=== PATIENT | male | born 1955 | race Caucasian/White ===

== ENCOUNTER 2016-09-23 11:26 | Emergency (ER) | payer OTHER ==
[~2016-09-23] VITALS: Ht 172.7 cm; Wt 111.0 kg
[~2016-09-23 11:26] MED LIST: ACIPHEX20 MG PO; ADVAIR 250-501 EACH; ADVAIR 250-501 EACH IH; ADVAIR 250/501 DISK IH; ADVAIR HFA120 INHALA IH; ADVIL,NUPRIN,M200 MG PO; ALBUTEROL17 GM IH; ASPIRIN81 M2 PO; ATORVASTATIN CA10 MG PO; ATROVENT 00.5 MG/2.5 IH; Aspirin E.C. PO; BAYER CHEWABLE81 MG PO; CLONAZEPAM0.5 MG PO; CLOPIDOGREL75 MG PO; COMBIVENT INH14.7 GM PO; COMBIVENT RESPIM4 GM IH; CRESTOR5 MG PO; CYCLOBENZAPRINE10 MG PO; DOXAZOSIN MESYLA2 MG PO; DUONEB 2.5-0.5 M3 ML AEROSOL; ENDOCET 5-3251 EAC1 PO; ENDOCET 5-3251 EACH PO; FLEXERIL10 MG PO; FLOVENT 22120 INHALA IH; FLOVENT DISKUS1 DIS1 IH; HYDROCHLOROTHIA25 MG PO; IBUPROFEN200 M2 PO; IMDUR30 MG PO; LEVOFLOXACIN750 MG PO; LEXAPRO10 MG PO; LISINOPRIL-HCT1 EAC3 PO; LISINOPRIL2.5 MG PO; LOPRESSOR50 MG PO; Lopressor PO; MAG-OXIDE400 MG PO; METOPROLOL SUCC50 MG PO; NICOTINE PATCH1 EAC2 TD; NOHOMEMEDS; NORVASC5 MG PO; OMEPRAZOLE20 MG PO; OMEPRAZOLE40 M1 PO; OXYCODONE-APAP1 EAC6 PO; PERCOCET 5/31 TABLET PO; PREDNISONE10 MG PO; PREDNISONE50 MG PO; PRILOSEC20 MG PO; PROAIR HFA8.5 GM IH; PROVENTIL HFA6.7 GM PO; PROVENTIL2.5 MG/3 M IH; PROZAC20 MG PO; RANITIDINE HCL300 MG PO; SERTRALINE HCL100 MG PO; SPIRIVA RESPIMAT4 GM IH; SYMBICORT60 INHALAT IH; THEO-DUR,THEOC200 MG PO; THEO-DUR,THEOC300 MG PO; TOPROL XL50 MG PO; WELLBUTRIN SR100 MG PO; WELLBUTRIN XL300 MG PO; Wellbutrin SR PO; XARELTO15 MG PO; ZANTAC300 MG PO; ZESTORETIC 20-1 EAC2 PO; ZITHROMAX500 MG PO; Zocor PO
[2016-09-23 12:24] LABS: HEMATOCRIT 57.9 % (38.0-50.0); MCH 31.5 PG (29.0-34.0); MCHC 34.2 G/DL (30.0-36.0); MEAN PLAT.VOLUME 9.4 uM^3 (9.0-12.4); PLATELET COUNT 240 K/uL (156-360); RBC DIS.WIDTH-CV 12.9 % (11.8-14.6); RBC DIS.WIDTH-SD 43.3 % (39-53); RED BLOOD COUNT 6.28 M/uL (4.00-5.50); WHITE BLOOD COUNT 6.5 K/uL (4.1-10.2)
[2016-09-23 12:34] LABS: MCV 92.2 FL (86-99)
[2016-09-23 12:39] LABS: CHLORIDE 100 mEq/L (99-109); POTASSIUM 4.6 mEq/L (3.7-5.4); SODIUM 139 mEq/L (136-147)
[2016-09-23 12:40] LABS: GLUCOSE 115 mg/dL (70-99)
[2016-09-23 12:42] LABS: ANION GAP 8 MEQ/L (2-14)
[2016-09-23 12:44] LABS: GFR ESTIMATE (CALCULATED) 51 mL/min/
[2016-09-23 12:45] LABS: UREA NITROGEN (BUN) 21 mg/dL (9-23)
[2016-09-23 12:49] LABS: TROP-I INTERPRETATION NEGATIVE; TROPONIN-I 0.01 ng/mL (0.0-0.30)
[2016-09-23 13:00] VITALS: BP 132/70
== END 2016-09-23 13:01 | disposition home or self-care (01) ==
LOC: EME 11:26
PROVIDERS: Emergency Medicine
DX: R07.89 Other chest pain (principal); I10 Essential (primary) hypertension; J44.9 Chronic obstructive pulmonary disease, unspecified; J45.909 Unspecified asthma, uncomplicated; E78.5 Hyperlipidemia, unspecified; I25.2 Old myocardial infarction; K21.9 Gastro-esophageal reflux disease without esophagitis; G43.909 Migraine, unspecified, not intractable, without status migrainosus; Z96.89 Presence of other specified functional implants; F32.9 Major depressive disorder, single episode, unspecified; F17.200 Nicotine dependence, unspecified, uncomplicated
CPT/HCPCS: 80048; 84484; 85027; 93005; 99281; 99284

== ENCOUNTER 2016-12-08 01:37 | Emergency (ER) | payer OTHER ==
[~2016-12-08] VITALS: Ht 188 cm; Wt 117.2 kg
[2016-12-08] MEDS ORDERED: NAPROSYN500 MG PO (02:26)
[2016-12-08 02:46] VITALS: BP 168/99
== END 2016-12-08 02:48 | disposition home or self-care (01) ==
LOC: EME 01:37
DX: S80.02XA Contusion of left knee, initial encounter (principal); W10.9XXA Fall (on) (from) unspecified stairs and steps, initial encounter; J44.9 Chronic obstructive pulmonary disease, unspecified; F17.200 Nicotine dependence, unspecified, uncomplicated; I10 Essential (primary) hypertension; G89.29 Other chronic pain; Z79.891 Long term (current) use of opiate analgesic
CPT/HCPCS: 73564; 99281; 99283

== ENCOUNTER 2017-05-08 10:32 | Observation (INO) | payer OTHER ==
[~2017-05-08] VITALS: Ht 188 cm; Wt 109.1 kg
[~2017-05-08 10:32] MED LIST changes: +NAPROSYN500 MG PO
[2017-05-08 11:17] LABS: HEMATOCRIT 51.6 % (38.0-50.0); HEMOGLOBIN 18.7 G/DL (12.5-16.6); MCH 32.9 PG (29.0-34.0); MCHC 36.2 G/DL (30.0-36.0); MCV 90.8 FL (86-99); PLATELET COUNT 211 K/uL (156-360); RBC DIS.WIDTH-CV 12.7 % (11.8-14.6); RBC DIS.WIDTH-SD 41.8 % (39-53); RED BLOOD COUNT 5.68 M/uL (4.00-5.50); WHITE BLOOD COUNT 5.9 K/uL (4.1-10.2)
[2017-05-08 11:29] LABS: CHLORIDE 99 mEq/L (99-109); POTASSIUM 3.8 mEq/L (3.7-5.4); SODIUM 140 mEq/L (136-147)
[2017-05-08 11:31] LABS: GLUCOSE 102 mg/dL (70-99)
[2017-05-08 11:34] LABS: SERUM ETHYL ALCOHOL < 10 mg/dL
[2017-05-08 11:35] LABS: CREATININE 1.3 mg/dL (0.6-1.3); GFR ESTIMATE (CALCULATED) > 59 mL/min/ (58.99-99999)
[2017-05-08 11:36] LABS: UREA NITROGEN (BUN) 21 mg/dL (9-23)
[2017-05-08 11:38] LABS: CREATINE KINASE 53 IU/L (1-294); LIPASE 25 U/L (1.0-51.0); TOTAL CK 53 IU/L (1-294); TROP-I INTERPRETATION NEGATIVE; TROPONIN-I < 0.01 ng/mL (0.0-0.30)
[2017-05-08 11:44] LABS: CK-MB 1.4 ng/mL (0.0-4.9); CKMB RELATIVE INDEX 2.6 (0.0-3.9)
[2017-05-08 13:46] LABS: AMPHETAMINE NEGATIVE (500 ng/mL); BARBITURATES NEGATIVE (200 ng/mL); BENZODIAZEPINES NEGATIVE (150 ng/mL); BUPRENORPHINE NEGATIVE (10 ng/mL); COCAINE NEGATIVE (150 ng/mL); METHADONE NEGATIVE (200 ng/mL); METHAMPHETAMINE NEGATIVE (500 ng/mL); OPIATES (MORPHINE) NEGATIVE (100 ng/mL); OXYCODONE NEGATIVE (100 ng/mL); PHENCYCLIDINE NEGATIVE (25 ng/mL); PROPOXYPHENE NEGATIVE (300 ng/mL); THC CANNABINOIDS PRESUMPTIVE POSITIVE (50 ng/mL); TRICYCLIC ANTIDEPRESSANTS NEGATIVE (300 ng/mL)
[2017-05-08 16:19] LABS: TROP-I INTERPRETATION NEGATIVE; TROPONIN-I 0.02 ng/mL (0.0-0.30)
[2017-05-08] MEDS ORDERED: HYDROCHLOROTHIA25 MG PO (16:48)
[2017-05-08 16:50] VITALS: BP 134/90
[2017-05-08] MEDS ORDERED: METOPROLOL SUC100 MG PO (16:50)
[2017-05-08] MEDS ORDERED: DULOXETINE HCL60 MG PO (16:57)
[2017-05-08] MEDS ORDERED: AMLODIPINE BESYL5 MG PO (17:00)
[2017-05-08] MEDS ORDERED: GABAPENTIN300 MG PO (17:06)
== END 2017-05-08 17:01 | disposition left against medical advice (07) ==
LOC: EME 10:32 → EDOF 14:22 → ENRESERV 14:27 → EDOF 17:01
PROVIDERS: Emergency Medicine; Physician Assistant
DX: R55 Syncope and collapse (principal); R51 Headache; J44.9 Chronic obstructive pulmonary disease, unspecified; Z99.81 Dependence on supplemental oxygen; R09.02 Hypoxemia; W10.9XXA Fall (on) (from) unspecified stairs and steps, initial encounter; I12.9 Hypertensive chronic kidney disease with stage 1 through stage 4 chronic kidney disease, or unspecified chronic kidney disease; N18.9 Chronic kidney disease, unspecified; R07.9 Chest pain, unspecified; I25.10 Atherosclerotic heart disease of native coronary artery without angina pectoris; R53.82 Chronic fatigue, unspecified; G47.00 Insomnia, unspecified; F32.9 Major depressive disorder, single episode, unspecified; E78.5 Hyperlipidemia, unspecified; F17.200 Nicotine dependence, unspecified, uncomplicated; F12.90 Cannabis use, unspecified, uncomplicated; R42 Dizziness and giddiness; R29.6 Repeated falls; T43.216A Underdosing of selective serotonin and norepinephrine reuptake inhibitors, initial encounter; Z91.128 Patient's intentional underdosing of medication regimen for other reason; Z80.9 Family history of malignant neoplasm, unspecified; Z91.040 Latex allergy status; Z88.6 Allergy status to analgesic agent
CPT/HCPCS: 70450; 71046; 80048; 81003; 82550 91; 82553; 83690; 84484; 84999; 85027; 93005; 93880; 95819; G0378; G0480; J7030

== ENCOUNTER 2017-05-20 20:59 | Inpatient (IN) | payer OTHER ==
[~2017-05-20] VITALS: Ht 188 cm; Wt 110.1 kg
[~2017-05-20 20:59] MED LIST changes: +AMLODIPINE BESYL5 MG PO; +DULOXETINE HCL60 MG PO; +GABAPENTIN300 MG PO; +METOPROLOL SUC100 MG PO; +THEOPHYLLINE400 MG PO
[2017-05-20 22:00] LABS: HEMATOCRIT 49.4 % (38.0-50.0); HEMOGLOBIN 17.7 G/DL (12.5-16.6); MCH 32.7 PG (29.0-34.0); MCHC 35.8 G/DL (30.0-36.0); MCV 91.1 FL (86-99); PLATELET COUNT 237 K/uL (156-360); RBC DIS.WIDTH-CV 12.9 % (11.8-14.6); RBC DIS.WIDTH-SD 42.3 % (39-53); RED BLOOD COUNT 5.42 M/uL (4.00-5.50); WHITE BLOOD COUNT 6.6 K/uL (4.1-10.2)
[2017-05-20 22:10] LABS: PTT 31.4 SEC (25-37)
[2017-05-20 22:12] LABS: CHLORIDE 101 mEq/L (99-109); POTASSIUM 3.9 mEq/L (3.7-5.4); SODIUM 139 mEq/L (136-147)
[2017-05-20 22:14] LABS: GLUCOSE 105 mg/dL (70-99)
[2017-05-20 22:18] LABS: CREATININE 1.4 mg/dL (0.6-1.3); GFR ESTIMATE (CALCULATED) 55 mL/min/ (58.99-99999)
[2017-05-20 22:19] LABS: UREA NITROGEN (BUN) 22 mg/dL (9-23)
[2017-05-20 22:27] LABS: TROP-I INTERPRETATION NEGATIVE; TROPONIN-I 0.01 ng/mL (0.0-0.30)
[2017-05-20] MEDS ORDERED: ATORVASTATIN CA10 MG PO (22:30)
[2017-05-20] MEDS ORDERED: VITAMIN D32000 UNI1 PO (22:30)
[2017-05-20 23:25] LABS: THEOPHYLLINE 8.9 MCG/ML (10-20)
[2017-05-21 00:20] VITALS: BP 136/72
[2017-05-21 00:44] LABS: HDL CHOLESTEROL 39 MG/DL (Desirable>=40); LDL CHOLESTEROL 138 mg/dL (Desirable<100); NON-HDL CHOLESTEROL 178 mg/dL (Desirable<160); TOTAL CHOLESTEROL 217 mg/dL (Desirable<200); TRIGLYCERIDES 201 MG/DL (Normal: <150)
[2017-05-21 03:59] VITALS: BP 127/77
[2017-05-21 07:17] LABS: HEMATOCRIT 50.1 % (38.0-50.0); HEMOGLOBIN 17.4 G/DL (12.5-16.6); MCH 31.8 PG (29.0-34.0); MCHC 34.7 G/DL (30.0-36.0); MCV 91.4 FL (86-99); PLATELET COUNT 228 K/uL (156-360); RBC DIS.WIDTH-CV 12.9 % (11.8-14.6); RBC DIS.WIDTH-SD 43.4 % (39-53); RED BLOOD COUNT 5.48 M/uL (4.00-5.50); WHITE BLOOD COUNT 6.5 K/uL (4.1-10.2)
[2017-05-21 07:39] LABS: ALBUMIN 4.1 G/DL (3.2-4.8); ALKALINE PHOSPHATASE 113 IU/L (3-129); ALT (GPT) 16 IU/L (3-49); AST (GOT) 14 IU/L (2-34); CHLORIDE 95 MEQ/L (99-109); CREATININE 1.5 MG/DL (0.6-1.3); GFR ESTIMATE (CALCULATED) 51 mL/min/ (58.99-99999); GLUCOSE 100 mg/dL (70-99); POTASSIUM 3.9 MEQ/L (3.7-5.4); SODIUM 137 MEQ/L (136-147); TOTAL PROTEIN 6.4 G/DL (6.4-8.3); UREA NITROGEN (BUN) 21 mg/dL (9-23)
[2017-05-21 07:41] VITALS: BP 120/80
[2017-05-21 11:40] VITALS: BP 132/82
[2017-05-21 16:05] VITALS: BP 122/80
[2017-05-21 19:38] VITALS: BP 120/80
[2017-05-22 00:06] VITALS: BP 119/71
[2017-05-22 04:07] VITALS: BP 118/78
[2017-05-22 06:32] LABS: BASOPHIL (%) 0.4 % (0-1); EOSINOPHIL (%) 1.4 % (0-5); EOSINOPHIL COUNT 0.1 K/uL (0-0.3); HEMATOCRIT 50.9 % (38.0-50.0); HEMOGLOBIN 17.7 G/DL (12.5-16.6); IMMATURE GRANULOCYTE (%) 0.4 % (0.0-0.7); LYMPHOCYTE (%) 24.9 % (15-42); LYMPHOCYTE COUNT 1.7 K/uL (1.0-2.8); MCH 31.7 PG (29.0-34.0); MCHC 34.8 G/DL (30.0-36.0); MCV 91.2 FL (86-99); MONOCYTE (%) 11.9 % (3-12); MONOCYTE COUNT 0.8 K/uL (0-0.8); NEUTROPHIL COUNT 4.3 K/uL (1.8-6.4); PLATELET COUNT 230 K/uL (156-360); RBC DIS.WIDTH-CV 12.8 % (11.8-14.6); RBC DIS.WIDTH-SD 42.5 % (39-53); RED BLOOD COUNT 5.58 M/uL (4.00-5.50)
[2017-05-22 07:07] LABS: CHLORIDE 96 MEQ/L (99-109); CREATININE 1.6 MG/DL (0.6-1.3); GFR ESTIMATE (CALCULATED) 47 mL/min/ (58.99-99999); GLUCOSE 108 mg/dL (70-99); POTASSIUM 4.4 MEQ/L (3.7-5.4); SODIUM 138 MEQ/L (136-147); UREA NITROGEN (BUN) 24 mg/dL (9-23)
[2017-05-22 07:35] VITALS: BP 110/70
[2017-05-22 09:51] LABS: HEMOGLOBIN A1c (GLYCOHEMOGLOB) 5.9 % (Below 5.7)
[2017-05-22 12:11] VITALS: BP 125/82
[2017-05-22] MEDS ORDERED: ATORVASTATIN CA80 MG PO (13:28)
[2017-05-22] MEDS ORDERED: ASPIRIN325 MG PO (13:28)
[2017-05-22 15:48] VITALS: BP 116/73
[2017-05-22 20:21] VITALS: BP 109/68
[2017-05-23 00:02] VITALS: BP 112/70
[2017-05-23 04:22] VITALS: BP 146/65
[2017-05-23 08:22] VITALS: BP 128/72
== END 2017-05-23 13:31 | disposition home health service (06) | DRG 64 ==
LOC: EME 20:59 → 5SOUTH 23:13 → EDOF 23:13 → ENRESERV 23:17 → EDOF 23:28 → ENRESERV 23:51 → 5SOUTH 05-21 00:20
PROVIDERS: Emergency Medicine; Internal Medicine; Physician Assistant
DX: I63.512 Cerebral infarction due to unspecified occlusion or stenosis of left middle cerebral artery (principal); G81.91 Hemiplegia, unspecified affecting right dominant side; R47.01 Aphasia; G93.6 Cerebral edema; R29.707 NIHSS score 7; J44.9 Chronic obstructive pulmonary disease, unspecified; Z99.81 Dependence on supplemental oxygen; I25.10 Atherosclerotic heart disease of native coronary artery without angina pectoris; I12.9 Hypertensive chronic kidney disease with stage 1 through stage 4 chronic kidney disease, or unspecified chronic kidney disease; N18.9 Chronic kidney disease, unspecified; R73.9 Hyperglycemia, unspecified; E78.00 Pure hypercholesterolemia, unspecified; F32.9 Major depressive disorder, single episode, unspecified; E66.9 Obesity, unspecified; Z68.31 Body mass index [BMI] 31.0-31.9, adult; D75.1 Secondary polycythemia; I45.10 Unspecified right bundle-branch block; K21.9 Gastro-esophageal reflux disease without esophagitis; I25.2 Old myocardial infarction; F17.200 Nicotine dependence, unspecified, uncomplicated; G43.909 Migraine, unspecified, not intractable, without status migrainosus; F41.9 Anxiety disorder, unspecified; F10.10 Alcohol abuse, uncomplicated; Z87.01 Personal history of pneumonia (recurrent); Z80.9 Family history of malignant neoplasm, unspecified
CPT/HCPCS: 70450; 70551; 71046; 80048; 80053; 80061; 80198; 83036; 84484; 85025; 85027; 85610; 85730; 92523 GN; 93005; 93306; 94640; 94640 76; 94799; 99202; 99281; 99285; C8923; J1644

== ENCOUNTER 2017-06-08 16:18 | Emergency (ER) | payer OTHER ==
[~2017-06-08] VITALS: Ht 188 cm; Wt 115.5 kg
[~2017-06-08 16:18] MED LIST changes: +ASPIRIN325 MG PO; +ATORVASTATIN CA80 MG PO; +VITAMIN D32000 UNI1 PO
[2017-06-08 17:34] LABS: BASOPHIL (%) 0.7 % (0-1); BASOPHIL COUNT 0.1 K/uL (0-0.1); EOSINOPHIL (%) 1.6 % (0-5); EOSINOPHIL COUNT 0.1 K/uL (0-0.3); HEMATOCRIT 46.7 % (38.0-50.0); HEMOGLOBIN 16.8 G/DL (12.5-16.6); IMMATURE GRANULOCYTE (%) 0.3 % (0.0-0.7); LYMPHOCYTE (%) 14.8 % (15-42); LYMPHOCYTE COUNT 1.1 K/uL (1.0-2.8); MCH 32.4 PG (29.0-34.0); MCV 90.2 FL (86-99); MONOCYTE (%) 8.7 % (3-12); MONOCYTE COUNT 0.7 K/uL (0-0.8); NEUTROPHIL (%) 73.9 % (45-76); NEUTROPHIL COUNT 5.5 K/uL (1.8-6.4); PLATELET COUNT 212 K/uL (156-360); RBC DIS.WIDTH-CV 12.5 % (11.8-14.6); RBC DIS.WIDTH-SD 41.5 % (39-53); RED BLOOD COUNT 5.18 M/uL (4.00-5.50); WHITE BLOOD COUNT 7.5 K/uL (4.1-10.2)
[2017-06-08 17:44] LABS: CHLORIDE 101 mEq/L (99-109); POTASSIUM 3.3 mEq/L (3.7-5.4); SODIUM 140 mEq/L (136-147)
[2017-06-08 17:46] LABS: GLUCOSE 153 mg/dL (70-99); INTER. NORMALIZED RATIO 1.1
[2017-06-08 17:48] LABS: PTT 31.4 SEC (25-37)
[2017-06-08 17:50] LABS: CREATININE 1.3 mg/dL (0.6-1.3); GFR ESTIMATE (CALCULATED) > 59 mL/min/ (58.99-99999)
[2017-06-08 17:51] LABS: UREA NITROGEN (BUN) 19 mg/dL (9-23)
[2017-06-08 17:55] LABS: TROP-I INTERPRETATION NEGATIVE; TROPONIN-I 0.01 ng/mL (0.0-0.30)
[2017-06-08 18:45] VITALS: BP 124/74
== END 2017-06-08 19:01 | disposition left against medical advice (07) ==
LOC: EME 16:18
PROVIDERS: Emergency Medicine
DX: G45.9 Transient cerebral ischemic attack, unspecified (principal); J44.9 Chronic obstructive pulmonary disease, unspecified; K21.9 Gastro-esophageal reflux disease without esophagitis; E78.5 Hyperlipidemia, unspecified; I12.9 Hypertensive chronic kidney disease with stage 1 through stage 4 chronic kidney disease, or unspecified chronic kidney disease; N18.9 Chronic kidney disease, unspecified; I25.2 Old myocardial infarction; F41.9 Anxiety disorder, unspecified; F32.9 Major depressive disorder, single episode, unspecified; Z86.73 Personal history of transient ischemic attack (TIA), and cerebral infarction without residual deficits; F17.200 Nicotine dependence, unspecified, uncomplicated; Z79.82 Long term (current) use of aspirin; Z88.6 Allergy status to analgesic agent; Z91.040 Latex allergy status
CPT/HCPCS: 70450; 71045; 80048; 84484; 85025; 85610; 85730; 93005; 99281; 99285

== ENCOUNTER 2017-08-26 23:00 | Observation (INO) | payer OTHER ==
[~2017-08-26] VITALS: Ht 188 cm; Wt 107.0 kg
[~2017-08-26 23:00] MED LIST changes: -METOPROLOL SUC100 MG PO
[2017-08-26 23:28] LABS: HEMATOCRIT 48.1 % (38.0-50.0); HEMOGLOBIN 17.2 G/DL (12.5-16.6); MCH 32.5 PG (29.0-34.0); MCHC 35.8 G/DL (30.0-36.0); MCV 90.9 FL (86-99); PLATELET COUNT 224 K/uL (156-360); RBC DIS.WIDTH-CV 12.4 % (11.8-14.6); RED BLOOD COUNT 5.29 M/uL (4.00-5.50); WHITE BLOOD COUNT 8.7 K/uL (4.1-10.2)
[2017-08-26 23:40] LABS: ALBUMIN 4.4 g/dL (3.2-4.8); CHLORIDE 98 mEq/L (99-109); POTASSIUM 3.7 mEq/L (3.7-5.4); SODIUM 138 mEq/L (136-147)
[2017-08-26 23:43] LABS: GLUCOSE 96 mg/dL (70-99); TOTAL PROTEIN 7.1 g/dL (6.4-8.3)
[2017-08-26 23:45] LABS: TOTAL BILIRUBIN 0.6 mg/dL (0.0-1.0)
[2017-08-26 23:46] LABS: ALKALINE PHOSPHATASE 139 IU/L (3-129); CREATININE 1.3 mg/dL (0.6-1.3); GFR ESTIMATE (CALCULATED) > 59 mL/min/ (58.99-99999)
[2017-08-26 23:47] LABS: UREA NITROGEN (BUN) 29 mg/dL (9-23)
[2017-08-26 23:48] LABS: AST (GOT) 14 IU/L (2-34)
[2017-08-26 23:49] LABS: ALT (GPT) 20 IU/L (3-49)
[2017-08-26 23:50] LABS: LIPASE 31 U/L (1.0-51.0); TROP-I INTERPRETATION NEGATIVE; TROPONIN-I 0.01 ng/mL (0.0-0.30)
[2017-08-27] MEDS ORDERED: LITE COAT ASPI325 M1 PO (00:28)
[2017-08-27] MEDS ORDERED: PERCOCET 7.51 TABLET PO (00:29)
[2017-08-27 01:46] LABS: D-DIMER ELISA < 150.00 ng/mLDDU (<230)
[2017-08-27 02:45] VITALS: BP 128/74
[2017-08-27 05:54] LABS: TROP-I INTERPRETATION NEGATIVE; TROPONIN-I < 0.01 ng/mL (0.0-0.30)
[2017-08-27 07:50] VITALS: BP 129/81
[2017-08-27 11:59] VITALS: BP 114/73
[2017-08-27 12:35] LABS: HEMATOCRIT 48.9 % (38.0-50.0); HEMOGLOBIN 16.5 G/DL (12.5-16.6); MCH 31.4 PG (29.0-34.0); MCHC 33.7 G/DL (30.0-36.0); MCV 93.1 FL (86-99); PLATELET COUNT 213 K/uL (156-360); RBC DIS.WIDTH-CV 12.5 % (11.8-14.6); RBC DIS.WIDTH-SD 43.1 % (39-53); RED BLOOD COUNT 5.25 M/uL (4.00-5.50); WHITE BLOOD COUNT 6.5 K/uL (4.1-10.2)
[2017-08-27 12:57] LABS: TROP-I INTERPRETATION NEGATIVE; TROPONIN-I < 0.01 ng/mL (0.0-0.30)
== END 2017-08-27 14:08 | disposition home or self-care (01) ==
LOC: EME 23:00 → EDOF 08-27 00:15 → ENRESERV 08-27 00:19 → 4SOUTH 08-27 02:34
PROVIDERS: Emergency Medicine; Hospitalist; Physician Assistant Medical
DX: R07.89 Other chest pain (principal); I69.351 Hemiplegia and hemiparesis following cerebral infarction affecting right dominant side; E78.5 Hyperlipidemia, unspecified; F17.200 Nicotine dependence, unspecified, uncomplicated; M19.90 Unspecified osteoarthritis, unspecified site; J44.9 Chronic obstructive pulmonary disease, unspecified; I10 Essential (primary) hypertension; F32.9 Major depressive disorder, single episode, unspecified; Z88.6 Allergy status to analgesic agent; Z91.040 Latex allergy status
CPT/HCPCS: 71046; 80048; 80053; 83690; 84484; 85027; 85379; 93005; 99281; 99285; G0378; J1650

== ENCOUNTER 2017-11-15 15:30 | Emergency (ER) | payer OTHER ==
[~2017-11-15] VITALS: Ht 188 cm; Wt 108.0 kg
[~2017-11-15 15:30] MED LIST changes: +LITE COAT ASPI325 M1 PO; +PERCOCET 7.51 TABLET PO
[2017-11-15 16:21] LABS: INTER. NORMALIZED RATIO 1.1
[2017-11-15 16:22] LABS: AMYLASE 65 IU/L (1-118)
[2017-11-15 16:24] LABS: PTT 31.4 SEC (25-37)
[2017-11-15 16:31] LABS: LIPASE 25 U/L (1.0-51.0)
[2017-11-15 16:36] LABS: TROP-I INTERPRETATION NEGATIVE; TROPONIN-I 0.03 ng/mL (0.0-0.30)
[2017-11-15 17:00] LABS: BASOPHIL (%) 0.8 % (0-1); EOSINOPHIL (%) 2.1 % (0-5); EOSINOPHIL COUNT 0.1 K/uL (0-0.3); HEMATOCRIT 47.9 % (38.0-50.0); IMMATURE GRANULOCYTE (%) 0.2 % (0.0-0.7); LYMPHOCYTE (%) 24.6 % (15-42); LYMPHOCYTE COUNT 1.3 K/uL (1.0-2.8); MCH 32.2 PG (29.0-34.0); MCHC 35.5 G/DL (30.0-36.0); MCV 90.7 FL (86-99); MONOCYTE COUNT 0.5 K/uL (0-0.8); NEUTROPHIL (%) 63.3 % (45-76); NEUTROPHIL COUNT 3.3 K/uL (1.8-6.4); PLATELET COUNT 210 K/uL (156-360); RBC DIS.WIDTH-CV 12.8 % (11.8-14.6); RED BLOOD COUNT 5.28 M/uL (4.00-5.50); WHITE BLOOD COUNT 5.2 K/uL (4.1-10.2)
[2017-11-15 19:19] VITALS: BP 172/96
== END 2017-11-15 19:29 | disposition left against medical advice (07) ==
LOC: EME 15:30
PROVIDERS: Emergency Medicine
DX: I63.9 Cerebral infarction, unspecified (principal); M25.551 Pain in right hip; I12.9 Hypertensive chronic kidney disease with stage 1 through stage 4 chronic kidney disease, or unspecified chronic kidney disease; N18.9 Chronic kidney disease, unspecified; Z86.73 Personal history of transient ischemic attack (TIA), and cerebral infarction without residual deficits; E78.5 Hyperlipidemia, unspecified; I25.2 Old myocardial infarction; F17.200 Nicotine dependence, unspecified, uncomplicated; F32.9 Major depressive disorder, single episode, unspecified; F41.9 Anxiety disorder, unspecified; J43.9 Emphysema, unspecified; J45.909 Unspecified asthma, uncomplicated; K21.9 Gastro-esophageal reflux disease without esophagitis; Z88.6 Allergy status to analgesic agent; Z91.040 Latex allergy status
CPT/HCPCS: 70450; 73502; 82150; 83690; 84484; 85025; 85610; 85730; 93005; 99281; 99285

== ENCOUNTER 2017-11-16 11:25 | Emergency (ER) | payer OTHER ==
[~2017-11-16] VITALS: Ht 188 cm; Wt 106.6 kg
[2017-11-16 14:41] VITALS: BP 154/98
== END 2017-11-16 14:44 | disposition home or self-care (01) ==
LOC: EME 11:25
DX: S00.81XA Abrasion of other part of head, initial encounter (principal); W19.XXXA Unspecified fall, initial encounter; I12.9 Hypertensive chronic kidney disease with stage 1 through stage 4 chronic kidney disease, or unspecified chronic kidney disease; N18.9 Chronic kidney disease, unspecified; Z86.73 Personal history of transient ischemic attack (TIA), and cerebral infarction without residual deficits; E78.5 Hyperlipidemia, unspecified; F32.9 Major depressive disorder, single episode, unspecified; F41.9 Anxiety disorder, unspecified; J45.909 Unspecified asthma, uncomplicated; J43.9 Emphysema, unspecified; F17.200 Nicotine dependence, unspecified, uncomplicated; K21.9 Gastro-esophageal reflux disease without esophagitis; Z88.6 Allergy status to analgesic agent; Z91.040 Latex allergy status; I25.2 Old myocardial infarction
CPT/HCPCS: 99281; 99284